=== PATIENT | male | born 1995 | race Caucasian/White ===

== ENCOUNTER 2019-07-04 12:55 | Emergency (ER) | payer MEDICAID, SELFPAY ==
[2019-07-04 13:11] VITALS: BP 153/84; PULSE 78; RESP 18; TEMP 37; O2SAT 100
--- NOTE | 2019-07-04 14:30 | ED.GENADULT ---
HPI - General Adult General Chief complaint: Upper Respiratory Infection Stated complaint: Swolen Tongue and Urinary Issues Time Seen by Provider: 07/04/19 14:13 Source: patient, family (Mother) and RN notes reviewed Mode of arrival: ambulatory Limitations: no limitations History of Present Illness HPI narrative: 24-year-old male presents with complains of anxiety, fatigue, sore throat, and swelling feeling to tongue for the past 3-4 weeks. Shaun says he over thinks things and is currently seeing a counselor. History of Anxiety. Has an appointment on 07/10/2019 for a follow up visit. Sleep disturbance. Denies suicidal ideation, homicidal ideation, auditory and visual hallucinations. Sore throat is bilateral. Intermittent pain with swallowing. No voice change. Denies having chest pain or shortness of breath. Shaun sought care at a local ED last night for complaints that also included neck pain was treated and discharged home. Denies dizziness, syncopal, head or chest trauma, altered mental status change or vision, altered speech, confusion, or seizure activity. Uses marijuana occasionally denies other recreational drug usage. Some parts of this dictation were generated by voice recognition software and may contain typographical and/or grammatical inaccuracies. Related Data Home Medications Medication Instructions Recorded Confirmed naproxen 500 mg PO BID PRN 07/04/19 07/04/19 Allergies Allergy/AdvReac Type Severity Reaction Status Date / Time No Known Allergies Allergy Verified 07/04/19 13:19 Review of Systems Review of Systems: Narrative: CONSTITUTIONAL: Denies fever, chills, sweats. EYES: Denies visual changes, redness, discharge. ENT: Denies rhinorrhea, congestion, otalgia. Complains of sore throat. CARDIOVASCULAR: Denies chest pain or edema. RESPIRATORY: Denies dyspnea, wheezing, cough. GASTROINTESTINAL: Denies abdominal pain, nausea, vomiting, diarrhea. GENITOURINARY: Denies dysuria, hematuria, abnormal discharge. SKIN: Denies rash or itching. MUSCULOSKELETAL: Denies acute back pain, joint pain, or myalgia. NEUROLOGIC: Denies numbness, or focal weakness. PSYCHIATRIC: Complains of anxiety. Denies depression. All other systems reviewed are negative, except as documented in HPI and below. [facility] Past Medical History Medical History (Updated 07/05/19 @ 00:01 by Background Daemon) Anxiety Surgical History Surgical History (Updated 07/04/19 @ 14:33 by WILEY De Jesus) History of tympanostomy Family History Family History (Updated 07/04/19 @ 14:35 by WILEY De Jesus) Father Heart disease Aneurysm Grandparent Heart disease Malignant neoplasm of prostate Social History Social History (Updated 07/04/19 @ 14:35 by WILEY De Jesus) Smoking packs per day: 0.5 Smoking cigarettes per day: 10.0 Years smoked: 9 Smoking pack-years: 4.50 Smoking status: Current every day smoker Second hand tobacco smoke exposure: Yes Alcohol intake: never Substance use: current Substance use type: marijuana Living arrangements: with family Occupation/Education: occupation Gender identity (if verbalized by the patient): Male Comments At time of signature, agree with nurse past medical, surgical, social, and family history. There is no relevant family history pertinent to the presenting complaint. Exam Narrative: Exam Narrative: GENERAL: This is a well-nourished, well-developed patient, in no apparent distress. Mildly anxious and speaking in full sentences and ambulates with steady gait without dyspnea. HEAD: normocephalic, atraumatic. EYES: PERRL. Sclera clear/white. Vision is grossly intact. EARS: External ears normal, auditory canals clear and without drainage, TMs normal without perforation. Hearing grossly intact. NOSE: External nose normal with no obvious nasal discharge, nares without redness, no rhinorrhea. MOUTH: Moist mucou
== END 2019-07-04 14:53 | disposition home or self-care (01) ==
PROVIDERS: Emergency Provider Nurse Practitioner Family
DX: B37.0 Candidal stomatitis (principal); F41.9 Anxiety disorder, unspecified; F17.210 Nicotine dependence, cigarettes, uncomplicated
CPT/HCPCS: 81003; 99213; G0463

== ENCOUNTER 2019-07-17 10:17 | Emergency (ER) | payer MEDICAID, SELFPAY ==
--- NOTE | ~2019-07-17 | XR_ITS ---
EXAMINATION: XR chest 2V DATE: 07/17/2019 11:50 INDICATION: Hemoptysis, tachycardia, palpitations. TECHNIQUE: PA and lateral views of the chest were obtained. COMPARISON: Chest radiograph dated 10/25/2015 FINDINGS: The lungs remain clear with no focal airspace opacities, pulmonary edema, pleural effusion or pneumot horax. The cardiomediastinal silhouette is normal. Mild thoracic dextrocurvature. Moderate disc heigh t loss with small endplate osteophytes in the lower thoracic spine at what appears to be T10-T11. IMPRESSION: 1. No acute cardiopulmonary disease. Reviewed, dictated and finalized at location [facility].
[2019-07-17 10:27] VITALS: BP 162/72; PULSE 110; RESP 16; TEMP 36.7; O2SAT 98
--- NOTE | 2019-07-17 11:11 | ED.GENADULT ---
HPI - General Adult General Chief complaint: Unspecified Stated complaint: multiple complaints Time Seen by Provider: 07/17/19 11:10 Source: patient Mode of arrival: ambulatory Limitations: no limitations History of Present Illness HPI narrative: Patient is here for multiple complaints. He states that approximately a month ago he was treated for a sore throat with antibiotics, 2 weeks after that he was treated with fluconazole for oral thrush. He completed that treatment course and is concerned that he still has white plaques on his tonsils for which he brought me pictures. He has occasional palpitations, urgent care had treated him with hydroxyzine for anxiety. He said he took 1 dose and did not like the way it made him feel so he did not take anymore. He states that he quit smoking 5 days ago. He states that he occasionally has needles and pins feeling in his arms . He denies any fever, he was not swabbed prior to starting antibiotics. Onset (ago): week(s) Associated symptoms: denies other symptoms Treatments prior to arrival: other (fluconazole) Related Data Home Medications Medication Instructions Recorded Confirmed naproxen 500 mg PO BID PRN 07/04/19 07/04/19 Allergies Allergy/AdvReac Type Severity Reaction Status Date / Time No Known Allergies Allergy Verified 07/04/19 13:19 Review of Systems Review of Systems: All systems reviewed & are unremarkable except as noted in HPI and below PMFSH Past Medical History Medical History Anxiety Surgical History Surgical History History of tympanostomy Family History Family History Father Heart disease Aneurysm Grandparent Heart disease Malignant neoplasm of prostate Social History Social History (Updated 07/17/19 @ 11:44 by Juani Robles PA-C) Smoking packs per day: 0.5 Smoking cigarettes per day: 10.0 Years smoked: 9 Smoking pack-years: 4.50 Smoking status: Current every day smoker Second hand tobacco smoke exposure: Yes Alcohol intake: never Substance use: current Substance use type: marijuana Living arrangements: with family Gender identity (if verbalized by the patient): Male Exam Const: General: no acute distress Orientation/consciousness: patient oriented x3 HENMT: Head: normal to inspection Ears: TM's normal bilaterally General nose exam: Normal nares present Mouth: Yes moist mucous membranes Throat: uvula midline (biphed) and posterior oropharynx abnormal erythema Eyes: Conjunctivae: conjunctivae normal Pupils: Equal, round and reactive pupils present EOM: EOMs intact bilaterally Neck: Neck: lymphadenopathy (submandibular node on left, non tender) Resp: Effort & Inspection: normal respiratory effort Auscultation: clear to auscultation bilaterally and diminished lung sounds Cardio: Rate: tachycardic Rhythm: regular rhythm GI: GI Palp: Yes Soft to palpation Skin: General skin exam: normal color Neuro: General: patient oriented x3 Extrem: General: normal to inspection Psych: Affect: Anxious affect present Course Course Emergency Course: EKG, x-ray and lab results discussed with the patient. I assured him that at this time there are no significant findings. Patient did disclose that he is seeing a counselor once a week for anxiety and possible PTSD and was curious if that diagnosis would possibly cause him to have palpitations and chest pain. We discussed at length his need to continue with his counseling. If he indeed had thrush it was most likely caused by his antibiotic course. He did inquire about STD testing, he is asymptomatic and so I referred him to the health department. I will give him the name of a primary care physician for him to establish with. Vital Signs Vital signs: Vital Signs Temperature 36.7 C
--- NOTE | 2019-07-17 11:37 | ECG_ITS ---
Measurements Intervals [place] Rate: 78 P: 44 PA: 156 QRS: 70 QRSD: 89 T: 58 QT: 342 QTc: 391 Interpretive Statements SINUS RHYTHM WITH SINUS ARRHYTHMIA ST ELEVATION IN DIFFUSE LEADS- CONSIDER PERICARDITIS OR EARLY REPOLARIZATION BASELINE ARTIFACT- I, II, III, AVR, AVL, AVF, V1 ABNORMAL ECG Electronically Signed On 07-17-2019 13:00:02 CDT by Mikey Cruz D.O.
[2019-07-17 11:53] LABS: Basophils Absolute Auto 0.1 K/mm3 (0.0-0.1); Basophils Percent Auto 0.9 % (0.2-1.2); Eosinophils Absolute Auto 0.1 K/mm3 (0-0.3); Eosinophils Percent Auto 1.1 % (0-4.4); Hematocrit 47.5 % (42.0-52.0); Hemoglobin 15.8 g/dL (14.0-18.0); Immature Granulocyte Absolute 0.02 K/mm3 (0.00-0.031); Immature Granulocyte Percent A 0.4 % (0-0.5); Lymphocytes Absolute Auto 1.64 K/mm3 (0.9-3.2); Lymphocytes Percent Auto 29.4 % (18.3-44.2); Mean Corpuscular HGB Conc 33.3 g/dl (32-36); Mean Corpuscular Hemoglobin 29.2 pg (26-34); Mean Corpuscular Volume 87.6 fl (80-100); Mean Platelet Volume 11.5 fl (7.4-10.4); Monocytes Absolute Auto 0.5 K/mm3 (0.1-0.6); Monocytes Percent Auto 8.6 % (2.6-8.5); Neutrophils Absolute Auto 3.3 K/mm3 (1.3-6.7); Neutrophils Percent Auto 59.6 % (45.5-73.1); Platelet Count Result 143 k/mm3 (150-375); Red Blood Count 5.42 M/mm3 (4.6-6.20); Red Cell Distribution Width 11.9 % (11.5-14.5); White Blood Count 5.6 K/mm3 (4.5-10.0)
[2019-07-17 12:06] LABS: Alanine Aminotransferase 23 U/L (4-50); Albumin Level 4.8 g/dL (3.5-5.1); Alkaline Phosphatase 61 U/L (38-126); Aspartate Amino Transferase 24 U/L (17-59); Bilirubin,Total 0.4 mg/dL (0.2-1.3); Blood Urea Nitrogen 14 mg/dL (9-20); Calcium 9.7 mg/dL (8.4-10.2); Carbon Dioxide 27 mmol/L (22-30); Chloride 101 mmol/L (98-107); Estimated CRCL calculation 94 ml/min; Estimated Glomerular Filt Rate > 60; Glucose 91 mg/dL (75-110); Potassium 4.6 mmol/L (3.4-5.0); Sodium 137 mmol/L (137-145)
[2019-07-17 13:03] VITALS: BP 160/68; PULSE 107; RESP 17; O2SAT 98
== END 2019-07-17 13:05 | disposition home or self-care (01) ==
PROVIDERS: Physician Assistant; Emergency Provider Emergency Medicine
DX: F41.1 Generalized anxiety disorder (principal); R00.2 Palpitations; F17.210 Nicotine dependence, cigarettes, uncomplicated
CPT/HCPCS: 36415; 71046; 80053; 85025; 87081; 87880; 93005; 99283

== ENCOUNTER 2020-04-13 19:29 | Emergency (ER) | payer OTHER, SELFPAY ==
[2020-04-13 19:32] VITALS: BP 138/92; PULSE 97; RESP 18; TEMP 36.9; O2SAT 100
[2020-04-13 19:42] VITALS: BP 143/80; PULSE 90; RESP 16; TEMP 37.3; O2SAT 100
[2020-04-13] MEDS: KETOROLAC (*BKC) 60 MG/2 ML VIAL IM (19:59)
--- NOTE | 2020-04-13 20:00 | ED.GENADULT ---
HPI - General Adult General Chief complaint: Neck Pain/Injury Stated complaint: neck pain , cant feel fingers Time Seen by Provider: 04/13/20 19:46 Source: patient Mode of arrival: ambulatory Limitations: no limitations History of Present Illness HPI narrative: Patient is a 24-year-old male who presents with several days duration of pain to the left side of the neck that radiates down into the arm has had similar occurrences in the past believes it to be related to his physical nature of his job patient denies injury or trauma otherwise has taken [id number] medications with minimal improvement has not followed with primary care for this Related Data Allergies Allergy/AdvReac Type Severity Reaction Status Date / Time No Known Allergies Allergy Verified 04/13/20 19:37 Review of Systems Review of Systems: All systems reviewed & are unremarkable except as noted in HPI and below PMFSH Past Medical History Medical History (Updated 04/13/20 @ 20:03 by Sherif Pa PA-C) Anxiety Surgical History Surgical History History of tympanostomy Family History Family History Father Heart disease Aneurysm Grandparent Heart disease Malignant neoplasm of prostate Social History Social History Smoking packs per day: 0.5 Smoking cigarettes per day: 10.0 Years smoked: 9 Smoking pack-years: 4.50 Smoking status: Current every day smoker Second hand tobacco smoke exposure: Yes Alcohol intake: never Substance use: current Substance use type: marijuana Gender identity (if verbalized by the patient): Male Exam Narrative: Exam Narrative: GENERAL: Well-appearing, well-nourished, and in no acute distress. HEAD: Normocephalic, atraumatic. EYES: PERRLA and EOMI. ENT: Nares clear, no rhinorrhea or epistaxis. Mucous membranes moist. NECK: Supple. No adenopathy or masses. CHEST: Clear to auscultation. No respiratory distress. No wheezes rales or rhonchi HEART: Regular rate and rhythm. No murmur heard. Normal peripheral pulses. EXTREMITIES: Normal range of motion. No edema. Tenderness of the left paraspinal musculature of the cervical spine no deformities noted SKIN: Warm, dry, no rash. NEURO: No focal deficits. Alert and oriented x3. Neurovascularly intact. Capillary refill less than 2 seconds. Motor and sensory intact and symmetrical in the extremities PSYCH: Normal mood and affect. Course Course Emergency Course: Patient in the room aware of case findings treatment plan diagnosis agreeing to follow-up as directed or to return if symptoms worsen or concerns Vital Signs Vital signs: Vital Signs Temperature 98.4 F 04/13/20 19:32 Pulse Rate 97 04/13/20 19:32 Respiratory Rate 18 04/13/20 19:32 Blood Pressure 138/92 H 04/13/20 19:32 Pulse Oximetry 100 04/13/20 19:32 Temperature 99.1 F 04/13/20 19:42 Pulse Rate 90 04/13/20 19:42 Respiratory Rate 16 04/13/20 19:42 Blood Pressure 143/80 H 04/13/20 19:42 Pulse Oximetry 100 04/13/20 19:42 Medical Decision Making MDM Narrative Medical decision making narrative: Patients injury or pain is consistent with musculoskeletal etiology. No signs of neurological or vascular compromise on exam. Compartments and tisues are soft without signs of compartment syndrome. Pain is felt appropriate for further evaluation on an outpatient basis. Vital Signs Vital Signs: Vital Signs Temperature 98.4 F 04/13/20 19:32 Pulse Rate 97 04/13/20 19:32 Respiratory Rate 18 04/13/20 19:32 Blood Pressure 138/92 H 04/13/20 19:32 Pulse Oximetry 100 04/13/20 19:32 Temperature 99.1 F 04/13/20 19:42 Pulse Rate 90 04/13/20 19:42 Respiratory Rate 16 04/13/20 19:42 Blood Pressure 143/80 H 04/13/20 19:42 Pulse Oximetry 100 04/13/20 19:42
== END 2020-04-13 20:14 | disposition home or self-care (01) ==
PROVIDERS: Emergency Provider Emergency Medicine; PCP Family Medicine
DX: G24.3 Spasmodic torticollis (principal)
CPT/HCPCS: 96372; 99283; J1885

== ENCOUNTER 2021-11-16 09:55 | Emergency (ER) | payer OTHER, SELFPAY ==
--- NOTE | ~2021-11-16 | CT_ITS ---
EXAMINATION: CT abdomen pelvis w con DATE: 11/16/2021 11:54 INDICATION: Upper abdominal pain TECHNIQUE: Computed tomography (CT) of the abdomen and pelvis was performed without intravenous contr ast. Automated exposure control and iterative reconstruction technique were employed. Exam dose: 423 .92 mGy-cm total exam DLP. COMPARISON: 04/18/2014 scrotal ultrasound, reported normal 04/09/2014 CT abdomen pelvis FINDINGS: The lung bases are clear. Normal heart size. No pericardial or pleural effusion. The liver, gallbladder, bile ducts, spleen, pancreas, pancreatic duct and adrenal glands are normal. No gallbladder wall thickening or pericholecystic fluid or fat stranding is noted. No renal mass lesion or urinary tract calculus or hydroureteronephrosis is evident. The urinary bladd er and prostate gland are unremarkable. Normal caliber of the abdominal aorta. No intraperitoneal or retroperitoneal or pelvic mass lesion or adenopathy or ascites. An appendicolith is again noted but no appendiceal dilatation or appendiceal wall thickening or peria ppendiceal inflammatory change.. No bowel obstruction. There are nondilated fluid containing mid to d istal small bowel segments which may be due to enteritis or mild adynamic ileus. Included skeletal structures are unremarkable. IMPRESSION: Nondilated fluid containing mid to distal small bowel segments which may be due to enter itis or mild adynamic ileus; no bowel obstruction or free air Chronic appendicolith; no appendiceal dilatation, wall thickening or periappendiceal inflammatory floyd nge Reviewed, dictated and finalized at [facility]. Reviewed, dictated and finalized at location [facility]. IMPRESSION: Nondilated fluid containing mid to distal small bowel segments whi ch may be due to enteritis or mild adynamic ileus; no bowel obstruction or free air Chronic appendicolith; no appendiceal dilatation, wall thickening or periappend iceal inflammatory change
[2021-11-16 10:10] VITALS: BP 145/68; PULSE 79; TEMP 36.3; O2SAT 100
[2021-11-16 10:49] LABS: Appearance Urine Clear (Clear); Basophils Absolute Auto 0.1 K/mm3 (0.0-0.1); Basophils Percent Auto 0.3 % (0.2-1.2); Bilirubin Urine Negative (Negative); Blood Urine Negative (Negative); Color Urine Yellow (Yellow); Eosinophils Absolute Auto 0.1 K/mm3 (0-0.3); Eosinophils Percent Auto 0.5 % (0-4.4); Glucose Urine UA Negative (Negative); Hematocrit 48.7 % (42.0-52.0); Hemoglobin 15.5 g/dL (14.0-18.0); Immature Granulocyte Absolute 0.06 K/mm3 (0.00-0.031); Immature Granulocyte Percent A 0.4 % (0-0.5); Ketones Urine Negative (Negative); Leukocyte Esterase Ur Negative LEU/UL (Negative); Lymphocytes Absolute Auto 1.05 K/mm3 (0.9-3.2); Lymphocytes Percent Auto 6.7 % (18.3-44.2); Mean Corpuscular HGB Conc 31.8 g/dl (32-36); Mean Corpuscular Hemoglobin 29.1 pg (26-34); Mean Corpuscular Volume 91.5 fl (80-100); Mean Platelet Volume 11.7 fl (7.4-10.4); Monocytes Absolute Auto 1.3 K/mm3 (0.1-0.6); Monocytes Percent Auto 8.5 % (2.6-8.5); Neutrophils Absolute Auto 13.1 K/mm3 (1.3-6.7); Neutrophils Percent Auto 83.6 % (45.5-73.1); Nitrate Urine Negative (Negative); Platelet Count Result 143 k/mm3 (150-375); Protein Urine Negative (Negative); Red Blood Count 5.32 M/mm3 (4.6-6.20); Red Cell Distribution Width 12.8 % (11.5-14.5); Specific Grav Ur >= 1.030 (1.001-1.035); Urobilinogen Urine 0.2 mg/dL (<2.0); White Blood Count 15.6 K/mm3 (4.5-10.0); pH Urine 5.5 (5.0-9.0)
[2021-11-16 10:51] LABS: Add Urine Microscopic? NO
[2021-11-16 11:03] LABS: Alanine Aminotransferase 27 U/L (6-50); Albumin Level 4.9 g/dL (3.5-5.1); Alkaline Phosphatase 62 U/L (38-126); Anion Gap 8 mmol/L (8-16); Aspartate Amino Transferase 22 U/L (17-59); Bilirubin,Total 0.4 mg/dL (0.2-1.3); Blood Urea Nitrogen 19 mg/dL (9-20); Carbon Dioxide 25 mmol/L (22-30); Chloride 108 mmol/L (98-107); Estimated CRCL calculation 115 ml/min; Estimated Glomerular Filt Rate > 60; Glucose 102 mg/dL (65-110); Lipase 44 U/L (23-300); Potassium 4.5 mmol/L (3.4-5.0); Sodium 141 mmol/L (137-145)
[2021-11-16 11:06] VITALS: BP 128/73; PULSE 71; RESP 16; TEMP 36.8; O2SAT 100
[2021-11-16 11:15] VITALS: BP 128/73; PULSE 58
[2021-11-16 11:17] VITALS: BP 127/82; PULSE 62
[2021-11-16 11:19] VITALS: BP 130/80; PULSE 66
--- NOTE | 2021-11-16 11:24 | ED.NAVMDI ---
HPI - Nausea/Vomiting/Diarrhea General Chief complaint: Nausea/Vomiting/Diarrhea Stated complaint: nausea/vomitting Time Seen by Provider: 11/16/21 11:04 History of Present Illness HPI Narrative: 26-year-old male presents the emergency room for evaluation of nausea, vomiting, diarrhea and intermittent abdominal pain. Patient states that he has had multiple nonbilious and nonbloody episodes of vomiting over the past 3 days. Also accompanied with diarrhea. Reports upper abdominal pain, describes it as a fullness feeling that sometimes sharp. No radiating pain. Patient states over the last 3 weeks he has had 3 separate episodes of vomiting and diarrhea cannot understand why continues to occur. Denies fever. Patient does endorse smoking marijuana every day. Denies alcohol use Related Data Allergies Allergy/AdvReac Type Severity Reaction Status Date / Time No Known Allergies Allergy Verified 11/16/21 10:04 Review of Systems Review of Systems: CONSTITUTIONAL: Denies fever, chills, or sweats. EYES: Denies visual changes, redness, or discharge. ENT: Denies rhinorrhea, congestion, sore throat, or otalgia. CARDIOVASCULAR: Denies chest pain, palpitations, or edema. RESPIRATORY: Denies cough or dyspnea. GASTROINTESTINAL: Reports abdominal pain, nausea, vomiting and diarrhea. GENITOURINARY: Denies dysuria or hematuria. SKIN: Denies rash or itching. MUSCULOSKELETAL: Denies back pain, joint pain, or myalgia. NEUROLOGIC: Denies headache, numbness, dizziness, or weakness. PSYCHIATRIC: Denies anxiety or depression. [facility] Past Medical History Medical History (Updated 11/16/21 @ 12:42 by Darion Gay APRN) Anxiety Surgical History Surgical History History of tympanostomy Family History Family History Father Heart disease Aneurysm Grandparent Heart disease Malignant neoplasm of prostate Social History Social History Smoking packs per day: 0.5 Smoking cigarettes per day: 10.0 Years smoked: 9 Smoking pack-years: 4.50 Smoking status: Current every day smoker Second hand tobacco smoke exposure: Yes Alcohol intake: never Substance use: current Substance use type: marijuana Gender identity (if verbalized by the patient): Male Exam Narrative: GENERAL: Well-appearing, well-nourished, no physical limitations, and in no acute distress. HEAD: Normocephalic, atraumatic. EYES: Conjunctivae normal, PERRLA and EOMI. CHEST: Clear to auscultation. No respiratory distress. No wheezes rales or rhonchi. No tenderness. HEART: Regular rate and rhythm. No murmur heard. Normal peripheral pulses. ABDOMEN: Soft, nontender, nondistended, normal active bowel sounds. BACK: No CVA tenderness EXTREMITIES: Normal range of motion. No edema. No clubbing or cyanosis SKIN: Warm, dry, no rash. No noted wounds NEURO: No focal deficits. Alert and oriented x3. MAEW. CN's II-XI intact bilaterally, normal gait PSYCH: Cooperative. Normal mood and affect. Course Vital Signs Vital signs: Vital Signs Temperature 36.3 C L 11/16/21 10:10 Pulse Rate 79 11/16/21 10:10 Blood Pressure 145/68 H 11/16/21 10:10 Pulse Oximetry 100 11/16/21 10:10 Temperature 36.3 C L 11/16/21 12:00 Pulse Rate 68 11/16/21 12:00 Respiratory Rate 16 11/16/21 12:00 Blood Pressure 113/74 11/16/21 12:00 Pulse Oximetry 100 11/16/21 12:00 MDM - Nausea/Vomiting/Diarrhea MDM Narrative Medical decision making narrative: 26-year-old male presenting with upper abdominal pain. Exam was without any peritoneal signs. No evidence of acute abdomen. Patient is well-appearing. Work-up is shows a low suspicion for hepatobiliary disease or pancreatitis. CT scan shows possible enteritis which is consistent with patient's history. No evidence of diverticulitis or
[2021-11-16] MEDS: ONDANSETRON INJ 4 MG/2 ML VIAL IV PUSH (11:26)
[2021-11-16] MEDS: PANTOPRAZOLE SODIUM IV 40 MG VIAL IV PUSH (11:26)
[2021-11-16] MEDS: SODIUM CHLORIDE 0.9% IV 1,000 ML 999 ML IV CONT (11:26)
[2021-11-16] MEDS: DICYCLOMINE HCL INJ 20 MG/2 ML VIAL IM (11:26)
[2021-11-16 12:00] VITALS: BP 113/74; PULSE 68; RESP 16; TEMP 36.3; O2SAT 100
== END 2021-11-16 12:59 | disposition home or self-care (01) ==
PROVIDERS: Emergency Medicine; Emergency Provider Nurse Practitioner Family; PCP Family Medicine
DX: K52.9 Noninfective gastroenteritis and colitis, unspecified (principal); F17.210 Nicotine dependence, cigarettes, uncomplicated
CPT/HCPCS: 36415; 74177; 80053; 81003; 83690; 85025; 96361; 96372; 96374; 99284; C9113; J0500; J2405; J7030; Q9967

== ENCOUNTER 2023-03-26 18:54 | Emergency (ER) | payer OTHER, SELFPAY ==
--- NOTE | ~2023-03-26 | XR_ITS ---
EXAMINATION: XR chest 2V Exam Date/Time: 03/26/2023 19:24 C[place] MORNING HISTORY: wheezing Comparison: 07/17/2019. RESULT: Lines, tubes, and devices: None. Lungs and pleura: Clear. Cardiomediastinal silhouette: Stable. Other: No acute osseous or upper abdominal finding. IMPRESSION: No acute cardiopulmonary process. Reviewed, dictated and finalized at location K. MORNING
[2023-03-26 18:56] VITALS: BP 148/88; PULSE 83; RESP 16; TEMP 36.3; O2SAT 100
--- NOTE | 2023-03-26 19:15 | ECG_ITS ---
Measurements Intervals [place] Rate: 62 P: 30 LA: 167 QRS: 51 QRSD: 93 T: 42 QT: 371 QTc: 378 Interpretive Statements SINUS RHYTHM WITH SINUS ARRHYTHMIA BASELINE ARTIFACT- I, II, III NORMAL ECG COMPARED TO ECG 07/17/2019 12:25:13 NO SIGNIFICANT CHANGES Electronically Signed On 03-26-2023 20:28:07 [employer]OR [employer] by Mikey Cruz D.O.
--- NOTE | 2023-03-26 19:17 | ED.ALCOHOL ---
HPI - Alcohol General Chief Complaint: Alcohol Stated Complaint: etoh poisoning Time Seen by Provider: 03/26/23 19:02 History of Present Illness HPI narrative: 27 y/o M with a history of anxiety reports for evaluation for anxiety and nausea today. Pt states he drank a lot of whiskey yesterday and woke up today still feeling drunk. He is complaining of numbness and tingling in his hands, feet and tongue, which states always happens when he feels anxious. He is also reporting multiple episodes of presyncope today and lightheadedness. Pt states he normally does not drink every day, he normally has 1-2 shots of whiskey 2x week. He does report smoking marijuana, last time was yesterday. Denies syncope, head injury, seizures, vision changes, fever, cough, congestion, chest pain, dyspnea, abdominal pain, vomiting, diarrhea, urinary complaints. Denies other drug use. Patient does not take anything for anxiety. He denies SI or HI. Related Data Allergies Allergy/AdvReac Type Severity Reaction Status Date / Time No Known Allergies Allergy Verified 11/16/21 10:04 Review of Systems Review of Systems: CONSTITUTIONAL: Denies fever, chills, or sweats. EYES: Denies visual changes, redness, or discharge. ENT: Denies rhinorrhea, congestion, sore throat, or otalgia. CARDIOVASCULAR: Denies chest pain, palpitations, or edema. RESPIRATORY: Denies cough or dyspnea. GASTROINTESTINAL: Denies abdominal pain, nausea, vomiting, or diarrhea. GENITOURINARY: Denies dysuria or hematuria. SKIN: Denies rash or itching. MUSCULOSKELETAL: Denies back pain, joint pain, or myalgia. NEUROLOGIC: See HPI PSYCHIATRIC: see HPI [facility] Past Medical History Medical History (Updated 03/26/23 @ 21:50 by Yudith Rosales PA-C) Anxiety Surgical History Surgical History History of tympanostomy Family History Family History Father Heart disease Aneurysm Grandparent Heart disease Malignant neoplasm of prostate Social History Social History Smoking packs per day: 0.5 Smoking cigarettes per day: 10.0 Years smoked: 9 Smoking pack-years: 4.50 Smoking status: Current every day smoker Second hand tobacco smoke exposure: Yes Alcohol intake: never Substance use: current Substance use type: marijuana Living arrangements: with family Occupation/Education: occupation Gender identity (if verbalized by the patient): Male Exam Narrative: GENERAL: Well-appearing, well-nourished, and in no acute distress. HEAD: Normocephalic, atraumatic. EYES: PERRLA and EOMI. ENT: Nares clear, no rhinorrhea or epistaxis. Mucous membranes moist. NECK: Supple. CHEST: mild wheezing throughout lung jeffries. No respiratory distress. HEART: Regular rate and rhythm. No murmur heard. Normal peripheral pulses. ABDOMEN: Soft, nontender, nondistended, normal active bowel sounds. EXTREMITIES: Normal range of motion. No edema. SKIN: Warm, dry, no rash. NEURO: No focal deficits. Alert and oriented x3 . Cranial nerves 2-12 intact. Strength 5/5 in BUE and BLE. Sensation intact throughout. no pronator drift. Normal [id number]. Mild tremor with arms extended. PSYCH: Patient appears anxious and does endorse anxiety. Denies SI and HI. No hallucinations or delusions. Good Judgment and insight. Course Vital Signs Vital signs: Vital Signs Temperature 97.3 F L 03/26/23 18:56 Pulse Rate 83 03/26/23 18:56 Respiratory Rate 16 03/26/23 18:56 Blood Pressure 148/88 H 03/26/23 18:56 Pulse Oximetry 100 03/26/23 18:56 Oxygen Delivery Room Air 03/26/23 18:56 Temperature 97.3 F L 03/26/23 18:56 Pulse Rate 86 03/26/23 21:01 Respiratory Rate 16 03/26/23 21:01 Blood Pressure 146/90 H 03/26/23 21:01 Pulse Oximetry 97 03/26/23 21:01 Oxygen Delivery
[2023-03-26 19:33] LABS: Appearance Urine Clear (Clear); Bilirubin Urine Negative (Negative); Blood Urine Negative (Negative); Color Urine Yellow (Yellow); Glucose Urine UA Negative (Negative); Ketones Urine Negative (Negative); Leukocyte Esterase Ur Negative LEU/UL (Negative); Nitrate Urine Negative (Negative); Protein Urine Negative (Negative); Specific Grav Ur 1.002 (1.001-1.035); Urobilinogen Urine 0.2 mg/dL (<2.0); pH Urine 7.5 (5.0-9.0)
[2023-03-26] MEDS: SODIUM CHLORIDE 0.9% IV 1,000 ML 999 ML IV CONT (19:42)
[2023-03-26] MEDS: ONDANSETRON INJ 4 MG/2 ML VIAL IV PUSH ×2 (19:42→20:49)
[2023-03-26] MEDS: LORazepam INJ (*CRX) 2 MG/ML VIAL 1 MG IV PUSH ×2 (19:43→20:49)
[2023-03-26 19:49] LABS: Amphetamine Screen Urine Negative (Negative); Barbiturate Screen Urine Negative (Negative); Benzodiazepines Screen Urine Negative (Negative); Cannabinoid Screen Urine Positive (Negative); Cocaine Screen Urine Negative (Negative); Methadone Screen Urine Negative (Negative); Opiate Screen Urine Negative (Negative); Phencyclidine Screen Urine Negative (Negative)
[2023-03-26 19:51] LABS: Add Urine Microscopic? NO
[2023-03-26 19:57] LABS: Basophils Percent Auto 0.4 % (0.2-1.2); Eosinophils Percent Auto 0.1 % (0-4.4); Hematocrit 45.3 % (42.0-52.0); Hemoglobin 15.2 g/dL (14.0-18.0); Immature Granulocyte Absolute 0.02 K/mm3 (0.00-0.031); Immature Granulocyte Percent A 0.2 % (0-0.5); Lymphocytes Absolute Auto 1.72 K/mm3 (0.9-3.2); Lymphocytes Percent Auto 17.2 % (18.3-44.2); Mean Corpuscular HGB Conc 33.6 g/dl (32-36); Mean Corpuscular Hemoglobin 29.5 pg (26-34); Mean Corpuscular Volume 87.8 fl (80-100); Mean Platelet Volume 11.6 fl (7.4-10.4); Monocytes Absolute Auto 0.7 K/mm3 (0.1-0.6); Monocytes Percent Auto 6.5 % (2.6-8.5); Neutrophils Absolute Auto 7.6 K/mm3 (1.3-6.7); Neutrophils Percent Auto 75.6 % (45.5-73.1); Platelet Count Result 186 k/mm3 (150-375); Red Blood Count 5.16 M/mm3 (4.6-6.20); Red Cell Distribution Width 12.8 % (11.5-14.5)
[2023-03-26 20:03] VITALS: BP 119/102; PULSE 74; RESP 23; O2SAT 100
[2023-03-26 20:06] LABS: Ethanol < 10 mg/dL (<10)
[2023-03-26 20:07] LABS: Alanine Aminotransferase 35 U/L (6-50); Albumin Level 5.1 g/dL (3.5-5.1); Alkaline Phosphatase 83 U/L (38-126); Anion Gap 15 mmol/L (8-16); Aspartate Amino Transferase 32 U/L (17-59); Bilirubin,Total 0.6 mg/dL (0.2-1.3); Blood Urea Nitrogen 10 mg/dL (9-20); Calcium 10.2 mg/dL (8.4-10.2); Carbon Dioxide 21 mmol/L (22-30); Chloride 104 mmol/L (98-107); Estimated CRCL calculation 110 ml/min; Estimated Glomerular Filt Rate > 60; Glucose 118 mg/dL (65-110); Magnesium 1.9 mg/dL (1.6-2.3); Potassium 3.5 mmol/L (3.4-5.0); Sodium 140 mmol/L (137-145)
[2023-03-26 20:45] VITALS: BP 131/97; PULSE 73; RESP 12; O2SAT 100
[2023-03-26 21:01] VITALS: BP 146/90; PULSE 86; RESP 16; O2SAT 97
[2023-03-26 21:31] VITALS: BP 130/78; PULSE 94; RESP 20; O2SAT 98
--- NOTE | 2023-03-26 21:34 | PC.NURSE ---
Yudith, EDP notified of pt updated CIWA score.
[2023-03-26 22:01] VITALS: BP 133/72; PULSE 98; RESP 22; O2SAT 98
== END 2023-03-26 22:21 | disposition home or self-care (01) ==
PROVIDERS: Emergency Provider Physician Assistant; PCP Family Medicine
DX: F41.9 Anxiety disorder, unspecified (principal); F10.10 Alcohol abuse, uncomplicated; Y90.0 Blood alcohol level of less than 20 mg/100 ml; F17.210 Nicotine dependence, cigarettes, uncomplicated
CPT/HCPCS: 36415; 71046; 80053; 80307; 81003; 83735; 85025; 93005; 96361; 96374; 96375; 96376; 99284; J2060; J2405; J7030